=== PATIENT | male | born 1995 | race African-American/Black ===

== ENCOUNTER 2024-01-11 18:21 | Outpatient (CLI) | payer MEDICARE, SELFPAY | END 2024-01-11 18:22 | disposition home or self-care (01) | LOC: AMB 01-23 21:47 | PROVIDERS: Visit Provider Emergency Medicine Emergency Medical Services | DX: M25.661 Stiffness of right knee, not elsewhere classified (principal) | CPT/HCPCS: A0425; A0427 ==